=== PATIENT | female | born 1975 | race Caucasian/White ===

== ENCOUNTER 2016-06-01 22:24 | Emergency (ER) | payer MEDICARE, MEDICAID ==
[2016-06-01 22:53] LABS: ABSOLUTE EOSINOPHILS # (AUTO) 0.1 10^3/uL (0.0-0.6); ABSOLUTE MONOCYTES (AUTO) 0.6 10^3/uL (0.1-1.4); ABSOLUTE NEUT (AUTO) 3.6 10^3/uL (1.7-8.2); BASOPHILS % (AUTO) 0.6 % (0-2); EOSINOPHILS % (AUTO) 1.5 % (0-6); HEMATOCRIT 40.8 % (36.0-47.0); HEMOGLOBIN 13.7 g/dL (12.0-15.5); HGB HCT DIFFERENCE 0.3; LYMPHOCYTES % (AUTO) 40.9 % (13-45); MEAN CORPUSCULAR HEMOGLOBIN 30.4 pg (27.0-33.4); MEAN CORPUSCULAR HGB CONC 33.6 g/dL (32.0-36.0); MEAN CORPUSCULAR VOLUME 90 fl (80-97); MONOCYTES % (AUTO) 8.7 % (3-13); RED BLOOD COUNT 4.52 10^6/uL (3.72-5.28); RED CELL DISTRIBUTION WIDTH 12.3 % (11.5-14.0); SEGMENTED NEUTROPHILS % (AUTO) 48.3 % (42-78); WHITE BLOOD COUNT 7.4 10^3/uL (4.0-10.5)
[2016-06-01 22:57] LABS: APPEARANCE,URINE CLEAR; BILIRUBIN,URINE NEGATIVE (NEGATIVE); GLUCOSE, URINE NEGATIVE (NEGATIVE); KETONES,URINE NEGATIVE (NEGATIVE); LEUKOCYTE ESTERASE,URINE NEGATIVE (NEGATIVE); NITRITE,URINE NEGATIVE (NEGATIVE); PROTEIN,URINE NEGATIVE (NEGATIVE); URINE SPECIFIC GRAVITY 1.012; UROBILINOGEN,URINE NEGATIVE mg/dL (<2.0)
[2016-06-01 23:09] LABS: ALANINE AMINOTRANSFERASE 51 U/L (9-52); ALBUMIN 4.5 g/dL (3.5-5.0); ALKALINE PHOSPHATASE 70 U/L (38-126); ANION GAP 8 (5-19); ASPARTATE AMINO TRANSFERASE 47 U/L (14-36); BILIRUBIN,TOTAL 0.3 mg/dL (0.2-1.3); BLOOD UREA NITROGEN 9 mg/dL (7-20); CALCIUM 9.7 mg/dL (8.4-10.2); CARBON DIOXIDE 32 mmol/L (22-30); CHLORIDE 103 mmol/L (98-107); CREATININE RESULT 0.76 mg/dL (0.52-1.25); GLUCOSE 92 mg/dL (75-110); POTASSIUM 3.7 mmol/L (3.6-5.0); SODIUM 142.5 mmol/L (137-145); TOTAL PROTEIN 7.5 g/dL (6.3-8.2)
--- NOTE | 2016-06-02 00:05 | ER Document Report ---
ED General Pain - General Mode of Arrival: Ambulatory Information source: Patient TRAVEL OUTSIDE OF THE [place] IN LAST 30 DAYS: No <JACQUELINE JACKSON - Last Filed: 06/02/16 00:38> <SANDRA JEFFERSON - Last Filed: 06/02/16 06:30> - General Chief Complaint: Pain All Over Stated Complaint: TINGLING IN LEFT ARM AND ALL OVER PAIN Notes: Patient is a 40-year-old female that presents to the emergency department today with complaints of generalized pain throughout her body for 3 weeks. Patient reports an extensive past medical history including Lyme disease, rheumatoid arthritis, Sjogren's syndrome, lupus, history of bulging disks, and previous ovarian cancer. Patient reports that she is taking clonidine and Wellbutrin but that she is currently not on any other medications because she "does not like taking medicines". Patient has many other nonspecific generalized complaints including bilateral arm tingling, dry eyes, skin acne, and constipation. (JACQUELINE JACKSON) Past Medical History - General Information source: Patient - Social History Smoking Status: Current Every Day Smoker Cigarette use (# per day): Yes Chew tobacco use (# tins/day): No Frequency of alcohol use: Rare Drug Abuse: None Lives with: Spouse/Significant other Family History: Reviewed & Not Pertinent Patient has suicidal ideation: No Patient has homicidal ideation: No Endocrine Medical History: Reports: Hx Hypothyroidism Malignancy Medical History: Reports: Hx Ovarian Cancer Musculoskeltal Medical History: Reports Hx Arthritis - RA, Reports Other - Hx bulging discs in back Psychiatric Medical History: Reports: Hx Depression Past Surgical History: Reports: Hx Hysterectomy <JACQUELINE JACKSON - Last Filed: 06/02/16 00:38> <SANDRA JEFFERSON - Last Filed: 06/02/16 06:30> - Medical History Notes: Reports history of Lyme Disease, Sjgren's syndrome, and lupus. (JACQUELINE JACKSON) Review of Systems - Review of Systems Constitutional: denies: Fever EENT: No symptoms reported Cardiovascular: No symptoms reported Respiratory: No symptoms reported Gastrointestinal: See HPI, Constipation. denies: Abdominal pain, Vomiting Genitourinary: No symptoms reported Female Genitourinary: No symptoms reported Musculoskeletal: See HPI, Joint pain - knees, hips, lower back Skin: See HPI, Other - "skin breaking out" Hematologic/Lymphatic: No symptoms reported Neurological/Psychological: No symptoms reported -: Yes All other systems reviewed and negative <JACQUELINE JACKSON - Last Filed: 06/02/16 00:38> Physical Exam - General General appearance: Alert In distress: None - HEENT Head: Normocephalic, Atraumatic Eyes: Normal Conjunctiva: Normal Extraocular movements intact: Yes - Respiratory Respiratory status: No respiratory distress - Cardiovascular Rhythm: Regular - Abdominal Inspection: Normal Distension: No distension - Back Back: Normal, Nontender - Extremities General upper extremity: Normal inspection, Normal ROM, Normal strength. No: Tender, Edema General lower extremity: Normal inspection, Normal ROM, Normal strength. No: Tender, Edema - Neurological Neuro grossly intact: Yes Cognition: Normal Orientation: AAOx4 Speech: Normal - Psychological Associated symptoms: Normal affect, Normal mood - Skin Skin Temperature: Warm Skin Moisture: Dry Skin Color: Normal <JACQUELINE JACKSON - Last Filed: 06/02/16 00:38> <SANDRA JEFFERSON - Last Filed: 06/02/16 06:30> - Vital signs Vitals: Temp Pulse Resp BP Pulse Ox 97.8 F 114 H 16 131/94 H 99 06/01/16 22:31 06/01/16 22:31 06/01/16 22:31 06/01/16 22:31 06/01/16 22:31 - Extremities Notes: No joint swelling or redness. Moves all extremities without difficulty or apparent pain. (JACQUELINE JACKSON) Course - Laboratory Result Diagrams: 06/01/16 22:40 06/01/16 22:40 <JACQUELINE JACKSON - Last Filed: 06/02/16 00:38> - Laboratory Result Diagrams: 06/01/16 22:40 06/01/16 22:40 <SANDRA JEFFERSON - Last Filed: 06/02/16 06:30> - Re-evaluation Re-evalutation: 06/02/16 06:28 Patient present department complaining of pain all over her body. She says that she moved here from [place] about a year ago and has not been treated for her rheumatoid arthritis and multiple other issues. The patient reports that she is not currently on medications because she does not like to take medications. She says that she is generally noncompliant with medications however now she feels like she needs something to help her get through the weekend until she can see her doctor Sunday to discuss things further. She indicates that all the testing for rheumatoid was done down in [place]. She reports she also has a bulging disc in her cervical spine and that Dr. Deshpande has ordered a MRI to evaluate this further. The patient has a recent fevers. Same, she is alert and oriented in no acute distress vital signs stable patient is afebrile nontoxic appearing. No signs of meningismus. She has nonfocal neurologic exam. I do not identify any worrisome abnormalities requiring urgent intervention. Patient does ask for pain medication and I explained to her that I will give her a nonnarcotic analgesics and that if she truly does have rheumatoid arthritis that a course of steroids will probably be most helpful. Patient acknowledges understanding and agrees with this plan. (SANDRA JEFFERSON) - Vital Signs Vital signs: Temp Pulse Resp BP Pulse Ox 98.5 F 88 16 121/80 99 06/02/16 00:21 06/02/16 00:21 06/02/16 00:21 06/02/16 00:21 06/02/16 00:21 - Laboratory Laboratory results interpreted by me: 06/01/16 22:40 Carbon Dioxide 32 H AST 47 H Discharge <JACQUELINE JACKSON - Last Filed: 06/02/16 00:38> <SANDRA JEFFERSON - Last Filed: 06/02/16 06:30> - Discharge Clinical Impression: Chronic arthralgias of knees and hips Condition: Stable Disposition: HOME, SELF-CARE Instructions: Arthralgia ([facility]) Additional Instructions: Take medications as prescribed for joint and back pains. Follow-up with your primary provider on Sunday as you have already scheduled. Return for fevers, vomiting so not to keep down fluids, or other worsening or concerning symptoms. Prescriptions: Methylprednisolone [Medrol Dosepack (4 mg/Tab) 21 Tab/Dosepak] 21 tab PO ASDIR PRN #1 dspk PRN Reason: Naproxen 500 mg PO BID #20 tablet Referrals: ISRAEL JONES MD [Primary Care Provider] - Follow up as needed Scribe Attestation: 06/02/16 00:13 I personally performed the services described in the documentation, reviewed and edited the documentation which was dictated to the scribe in my presence, and it accurately records my words and actions. (SANDRA JEFFERSON) Scribe Documentation - Scribe Written by Scribe:: David Christopher, 06/02/2016 0038 acting as scribe for :: Samuel <JACQUELINE JACKSON - Last Filed: 06/02/16 00:38>
[2016-06-02 00:26] VITALS: BP 121/80
== END 2016-06-02 00:26 | disposition home or self-care (01) ==
LOC: ER 22:24
DX: G89.29 Other chronic pain (principal); M25.562 Pain in left knee; M25.561 Pain in right knee; M25.552 Pain in left hip; M25.551 Pain in right hip; R20.2 Paresthesia of skin; F17.210 Nicotine dependence, cigarettes, uncomplicated; E03.9 Hypothyroidism, unspecified; Z90.710 Acquired absence of both cervix and uterus; Z85.43 Personal history of malignant neoplasm of ovary
CPT/HCPCS: 36415; 80053; 81001; 85025; 87086; 99283

== ENCOUNTER 2016-12-16 22:04 | Emergency (ER) | payer MEDICARE, MEDICAID ==
[2016-12-16 22:19] VITALS: BP 115/62
--- NOTE | 2016-12-16 22:26 | ER Document Report ---
ED General - General Chief Complaint: Jaw Pain Stated Complaint: DIFFICULTY BREATHING Time Seen by Provider: 12/16/16 22:19 Notes: The patient is a 41-year-old female, past medical history rheumatoid arthritis, chronic Lyme disease, anxiety, presents with 1 day of left jaw tingling that spread to her left shoulder, axilla and arm. She does also feel an epigastric pain and burning that is similar to her prior reflux episodes. She feels anxious. Patient denies shortness of breath, nausea, vomiting, back pain, new medications, leg swelling, hemoptysis, recent travel, recent surgery, history of PEs, fevers or rash. TRAVEL OUTSIDE OF THE [place] IN LAST 30 DAYS: No - Related Data Allergies/Adverse Reactions: meperidine [From Demerol] Adverse Reaction (Verified 12/16/16 22:15) itching,dizziness Past Medical History - General Information source: Patient - Social History Smoking Status: Current Every Day Smoker Family History: Reviewed & Not Pertinent Endocrine Medical History: Reports: Hx Hypothyroidism Renal/ Medical History: Denies: Hx Peritoneal Dialysis Malignancy Medical History: Reports: Hx Ovarian Cancer Musculoskeltal Medical History: Reports Hx Arthritis - RA Psychiatric Medical History: Reports: Hx Depression Past Surgical History: Reports: Hx Hysterectomy Review of Systems - Review of Systems Notes: REVIEW OF SYSTEMS: CONSTITUTIONAL: -fevers, -chills EENT: -eye pain, -difficulty swallowing, -nasal congestion, +left jaw pain CARDIOVASCULAR: +chest pain, -syncope. RESPIRATORY: -cough, -SOB GASTROINTESTINAL: -abdominal pain, -nausea, -vomiting, -diarrhea GENITOURINARY: -dysuria, -hematuria MUSCULOSKELETAL: -back pain, -neck pain SKIN: -rash or skin lesions. HEMATOLOGIC: -easy bruising or bleeding. LYMPHATIC: -swollen, enlarged glands. NEUROLOGICAL: -altered mental status or loss of consciousness, -headache, +left arm tingling PSYCHIATRIC: -anxiety, -depression. ALL OTHER SYSTEMS REVIEWED AND NEGATIVE. Physical Exam - Vital signs Vitals: Temp Pulse Resp BP Pulse Ox 98.7 F 85 18 115/62 100 12/16/16 22:16 12/16/16 22:16 12/16/16 22:16 12/16/16 22:16 12/16/16 22:16 - Notes Notes: PHYSICAL EXAMINATION: GENERAL: Well-appearing, well-nourished and in no acute distress. HEAD: Atraumatic, normocephalic. EYES: Pupils equal round and reactive to light, extraocular movements intact, sclera anicteric, conjunctiva are normal. ENT: nares patent, oropharynx clear without exudates. Moist mucous membranes. NECK: Normal range of motion, supple without lymphadenopathy LUNGS: Breath sounds clear to auscultation bilaterally and equal. No wheezes rales or rhonchi. HEART: Regular rate and rhythm without murmurs ABDOMEN: Soft, nontender, normoactive bowel sounds. No guarding, no rebound. No masses appreciated. EXTREMITIES: Normal range of motion, no pitting or edema. No cyanosis. NEUROLOGICAL: Cranial nerves grossly intact. Normal speech, normal gait. Normal sensory and motor exams. PSYCH: Normal mood, normal affect. SKIN: Warm, Dry, normal turgor, no rashes or lesions noted. Course - Re-evaluation Re-evalutation: Patient appears very well. EKG and troponin did not show any signs of active ischemia, chest x-ray is negative and rest of labs and urine are unremarkable. Her HEART score is 1 and she is PERC negative. She is safe for outpatient follow-up and a recheck of her symptoms. She thinks that she is anxious and is requesting something to help. Will discharge her home and have her follow with her primary care physician for further evaluation and treatment. Given strict return precautions and she understands. Patient presents with multiple vague complaints that did not appear to be concerning for any acute life-threatening pathology. Vitals are within normal limits at triage and at time of discharge. Physical examination is unremarkable. Patient has tolerated oral intake without difficulty. Patient was not noted to be in distress at any point during their ER visit. At this time, based on the reassuring evaluation, I do not suspect an acute MA, pulmonary embolus, aortic dissection, acute intra-abdominal pathology, stroke, or sepsis.Will discharge with return precautions and follow-up recommendations. Verbal discharge instructions given a the bedside and opportunity for questions given. Medication warnings reviewed. Patient is in agreement with this plan and has verbalized understanding of return precautions and the need for primary care follow-up in the next 24-72 hours. - Vital Signs Vital signs: Temp Pulse Resp BP Pulse Ox 98.7 F 85 18 115/62 100 12/16/16 22:16 12/16/16 22:16 12/16/16 22:16 12/16/16 22:16 12/16/16 22:16 - Laboratory Result Diagrams: 12/16/16 22:50 12/16/16 22:50 Laboratory results interpreted by me: 12/16/16 12/16/16 22:39 22:50 AST 39 H ALT 59 H Urine Ascorbic Acid 40 H - Diagnostic Test Radiology reviewed: Image reviewed, Reports reviewed Radiology results interpreted by me: CXR: NAD - EKG Interpretation by Me EKG shows normal: Sinus rhythm, Steens, Intervals, QRS Complexes, ST-T Waves Rate: Normal When compared to previous EKG there are: No significant change Discharge - Discharge Clinical Impression: Jaw pain Chest pain Qualifiers: Chest pain type: unspecified Qualified Code(s): R07.9 - Chest pain, unspecified Condition: Stable Disposition: HOME, SELF-CARE Additional Instructions: CHEST PAIN OF UNCLEAR CAUSE: The exact cause of your chest pain isn't clear. Fortunately, there is no evidence of a dangerous medical condition. Further testing may be required to find the source of the pain. Most often, we find that this pain is coming from the chest wall -- the muscles or rib joints in the chest. But chest pain can come from the lung and lung lining, the esophagus, the heart valves or heart lining, and even the stomach or gallbladder. Rest. Eat lightly until the pain is gone. We may prescribe medicine for pain and inflammation. You should call the physician immediately if the pain radiates to the shoulder, jaw or arms; if you start to run a fever or develop a cough; or if you develop shortness of breath, or other new or alarming symptoms. NORMAL EXAM AND WORKUP: At this time, your examination and workup show no significant abnormality. No significant abnormal physical findings were noted. All laboratory, EKG, and imaging (x-ray, CT scans, ultrasound) studies that were ordered show no significant abnormality. Although your examination and all studies that were ordered showed no significant abnormal finding, there are no examinations and no studies that are 100% accurate. There is always the possibility that some abnormality could exist and not be detected with physical examination or within the limits and capabilities of laboratory and other studies. You should return or follow up as you were instructed on your visit today for further evaluation if your symptoms do not resolve. CHEST WALL PAIN: Your chest pain may be coming from the chest wall. This is often caused by straining the muscles or joints in the chest during physical activity, direct trauma, coughing, or vigorous vomiting. Persons with arthritis are especially prone to this type of pain, due to inflammation of the cartilage joints near the breast bone. Occasionally, no cause can be found. Rest from strenuous physical activity. This kind of chest pain is usually made worse by movement of the chest. Depending on the symptoms, we may prescribe medicine for pain, muscle relaxation, and antiinflammatory effects. If the pain is new, and seems to be due to muscle strain, cold packs can help. Otherwise, apply gentle warmth to the painful area for 15 minutes every hour or two. You should call contact the doctor immediately if things change. Further evaluation is needed if you develop a fever or cough, if the nature of the pain changes, or if you become short of breath. ACID REFLUX DISEASE (GERD): Gastro-Esophageal Reflux Disease (GERD) is caused by stomach acid refluxing back up into the esophagus. The valve at the end of the esophagus may be weak. This is common in persons with a hiatal hernia. GERD symptoms can include indigestion, chest pain, heartburn, or food "sticking." Certain foods, alcohol, and aspirin can make GERD worse. Treatment depends on the severity. Usually, antacids or acid-suppressing medicines are used. When the esophagus is acutely inflamed, the physician will often prescribe membrane-protective drugs such as Carafate. Some patients benefit from medication such as Reglan that tightens the valve at the top of the stomach. Avoid those foods that bring on your symptoms. For many people, these foods are coffee, chocolate, onions, garlic, and carbonated drinks. Don't use alcohol, aspirin, caffeine, or tobacco. Don't eat late at night -- within 4 hours of bedtime. Don't over-eat. If necessary, elevate the head of your bed about 4 inches so that stomach acid will not roll up into your esophagus. Call the doctor if you develop severe chest pain, inability to swallow fluids, fever, or worsening symptoms. FOLLOW-UP CARE: If you have been referred to a physician for follow-up care, call the physician s office for an appointment as you were instructed or within the next two days. If you experience worsening or a significant change in your symptoms, notify the physician immediately or return to the Emergency Department at any time for re-evaluation. Anxiety The physician feels that some of your health problems are being caused by anxiety. Anxiety affects your health in many ways. Anxiety alone can cause palpitations, sweats, chest pains, abdominal pains, shortness of breath, and headaches. It contributes to ulcer disease, high blood pressure, irritable bowel syndrome, and has been shown to cause flare-ups of many other diseases. Anxiety is not a simple disorder to treat. If the anxiety is due to recent life stresses, you may simply need time to "work through" the changes. If the anxiety is due to an underlying unhappiness with yourself or due to psychiatric disturbance, professional help will be needed. Your physician can refer you for further help if needed. Anti-anxiety medication is occasionally given if the stress is acute or if you are having trouble sleeping. Chronic or frequent use of these medications is not a good idea because the body becomes reliant on it, preventing you from dealing with life's normal stresses. Referrals: PEDRITO GARCIA MD [COMMUNITY BASED STAFF] - Follow up as needed
--- NOTE | 2016-12-16 23:02 | RADIOLOGY REPORT (SQ) ---
EXAM DESCRIPTION: CHEST PA/LAT COMPLETED DATE/TIME: 12/16/2016 10:42 pm REASON FOR STUDY: SOB COMPARISON: None. EXAM PARAMETERS: NUMBER OF VIEWS: two views TECHNIQUE: Digital Frontal and Lateral radiographic views of the chest acquired. RADIATION DOSE: NA LIMITATIONS: none FINDINGS: LUNGS AND PLEURA: No opacities, masses or pneumothorax. No pleural effusion. MEDIASTINUM AND HILAR STRUCTURES: No masses or contour abnormalities. HEART AND VASCULAR STRUCTURES: Heart normal size. No evidence for failure. BONES: No acute findings. HARDWARE: Cholecystectomy clips are present. OTHER: No other significant finding. IMPRESSION: NO SIGNIFICANT RADIOGRAPHIC FINDING IN THE CHEST. TECHNICAL DOCUMENTATION: JOB ID: [id number] [employer]- All Rights Reserved
[2016-12-16 23:05] LABS: ABSOLUTE EOSINOPHILS # (AUTO) 0.1 10^3/uL (0.0-0.6); ABSOLUTE LYMPHOCYTES (AUTO) 1.9 10^3/uL (0.5-4.7); ABSOLUTE MONOCYTES (AUTO) 0.4 10^3/uL (0.1-1.4); ABSOLUTE NEUT (AUTO) 3.3 10^3/uL (1.7-8.2); BASOPHILS % (AUTO) 0.6 % (0-2); EOSINOPHILS % (AUTO) 1.9 % (0-6); HEMATOCRIT 36.8 % (36.0-47.0); HEMOGLOBIN 13.1 g/dL (12.0-15.5); HGB HCT DIFFERENCE 2.5; LYMPHOCYTES % (AUTO) 32.7 % (13-45); MEAN CORPUSCULAR HEMOGLOBIN 32.3 pg (27.0-33.4); MEAN CORPUSCULAR HGB CONC 35.6 g/dL (32.0-36.0); MEAN CORPUSCULAR VOLUME 91 fl (80-97); RED BLOOD COUNT 4.06 10^6/uL (3.72-5.28); RED CELL DISTRIBUTION WIDTH 12.6 % (11.5-14.0); SEGMENTED NEUTROPHILS % (AUTO) 57.8 % (42-78); WHITE BLOOD COUNT 5.7 10^3/uL (4.0-10.5)
[2016-12-16 23:13] LABS: APPEARANCE,URINE CLEAR; BILIRUBIN,URINE NEGATIVE (NEGATIVE); GLUCOSE, URINE NEGATIVE (NEGATIVE); KETONES,URINE NEGATIVE (NEGATIVE); LEUKOCYTE ESTERASE,URINE NEGATIVE (NEGATIVE); NITRITE,URINE NEGATIVE (NEGATIVE); PROTEIN,URINE NEGATIVE (NEGATIVE); URINE SPECIFIC GRAVITY 1.015; UROBILINOGEN,URINE NEGATIVE mg/dL (<2.0)
[2016-12-16 23:17] LABS: ALANINE AMINOTRANSFERASE 59 U/L (9-52); ALBUMIN 4.3 g/dL (3.5-5.0); ALKALINE PHOSPHATASE 111 U/L (38-126); ANION GAP 10 (5-19); ASPARTATE AMINO TRANSFERASE 39 U/L (14-36); BILIRUBIN,DIRECT 0.2 mg/dL (0.0-0.4); BILIRUBIN,TOTAL 0.2 mg/dL (0.2-1.3); BLOOD UREA NITROGEN 11 mg/dL (7-20); CALCIUM 10.1 mg/dL (8.4-10.2); CARBON DIOXIDE 27 mmol/L (22-30); CHLORIDE 107 mmol/L (98-107); CREATINE KINASE 45 U/L (30-135); CREATININE RESULT 0.75 mg/dL (0.52-1.25); GLUCOSE 91 mg/dL (75-110); LIPASE 186.5 U/L (23-300); POTASSIUM 4.1 mmol/L (3.6-5.0); SODIUM 143.6 mmol/L (137-145); TOTAL PROTEIN 7.2 g/dL (6.3-8.2)
--- NOTE | 2016-12-17 13:03 | EKG REPORT ---
SEVERITY:- NORMAL ECG - SINUS RHYTHM : Confirmed by: Sudhir Izquierdo 17-Dec-2016 13:03:25
== END 2016-12-16 23:45 | disposition home or self-care (01) ==
LOC: ER 22:04
DX: R68.84 Jaw pain (principal); R07.9 Chest pain, unspecified; R06.02 Shortness of breath; A69.20 Lyme disease, unspecified; F41.9 Anxiety disorder, unspecified; F17.200 Nicotine dependence, unspecified, uncomplicated
CPT/HCPCS: 36415; 71020; 80053; 81001; 81025; 82550; 83690; 84484; 85025; 93005; 93010; 99284